=== PATIENT | male | born 1975 | race Caucasian/White ===

== ENCOUNTER 2017-01-19 18:28 | Emergency (ER) | payer MEDICAID, OTHER ==
[~2017-01-19] VITALS: Ht 193 cm; Wt 107.4 kg
[~2017-01-19 18:28] MED LIST: ACYC-114 PO; TADA2.5T PO
[2017-01-19] MEDS ORDERED: KETOROLAC 30 MG/1 ML IM ONE (20:30)
[2017-01-19] MEDS ORDERED: DIAZEPAM 5 MG TABLET PO ONE (20:30)
[2017-01-19] MEDS ORDERED: DIAZEPAM 5 MG TABLET ONE (21:25)
[2017-01-19] MEDS ORDERED: KETOROLAC 30 MG/1 ML ONE (21:25)
[2017-01-19 21:58] VITALS: BP 162/97
== END 2017-01-19 22:00 | disposition home or self-care (01) ==
LOC: ED 21:50
DX: S16.1XXA Strain of muscle, fascia and tendon at neck level, initial encounter (principal); S39.012A Strain of muscle, fascia and tendon of lower back, initial encounter; G89.11 Acute pain due to trauma; G43.909 Migraine, unspecified, not intractable, without status migrainosus; V43.52XA Car driver injured in collision with other type car in traffic accident, initial encounter; Y93.89 Activity, other specified; Y92.89 Other specified places as the place of occurrence of the external cause; Y99.8 Other external cause status
CPT/HCPCS: 72110; 72125; 73030; 96372; 99284; J1885

== ENCOUNTER 2017-01-20 12:34 | Emergency (ER) | payer MEDICAID, OTHER ==
[~2017-01-20] VITALS: Ht 193 cm; Wt 107.0 kg
[2017-01-20 14:02] LABS: HEMATOCRIT 46.1 % (39.2-51.8); HEMOGLOBIN 15.7 g/dL (13.7-18.0); WHITE BLOOD COUNT 8.2 x10^3/uL (3.4-10)
[2017-01-20 14:44] VITALS: BP 152/92
== END 2017-01-20 15:39 | disposition home or self-care (01) ==
LOC: ED 15:30
DX: N20.0 Calculus of kidney (principal)
CPT/HCPCS: 36415; 74176; 81001; 85025; 87086; 87147; 99285

== ENCOUNTER 2019-04-11 10:48 | Emergency (ER) | payer MEDICAID, OTHER ==
[~2019-04-11] VITALS: Ht 193 cm; Wt 89.4 kg
[2019-04-11 10:50] VITALS: BP 126/87
--- NOTE | 2019-04-11 11:07 | NUR ---
Dr. Sahu at bedside to evaluate pt.
--- NOTE | 2019-04-11 11:21 | NUR ---
Pt to xray via wheelchair.
[2019-04-11] MEDS ORDERED: DIPH,PERTUSS(ACELL),TET VAC/PF 0.5 ML IM-VACC ONE ×2 (11:30→11:34)
[2019-04-11] MEDS ORDERED: KETOROLAC 30 MG/1 ML IM ONE (11:30)
[2019-04-11] MEDS ORDERED: KETOROLAC 60 MG/2 ML ONE (11:34)
[2019-04-11] MEDS ORDERED: OXYcodone/APAP 10/325MG TABLET ONE (12:11)
[2019-04-11] MEDS ORDERED: NEOSPORIN OINT. PKT 1 PACKET ONE ×2 (12:18→12:26)
[2019-04-11] MEDS ORDERED: OXYcodone/APAP 10/325MG TABLET PO ONE (12:30)
== END 2019-04-11 13:12 | disposition home or self-care (01) ==
LOC: ED 11:44
DX: S23.41XA Sprain of ribs, initial encounter (principal); S20.212A Contusion of left front wall of thorax, initial encounter; V29.9XXA Motorcycle rider (driver) (passenger) injured in unspecified traffic accident, initial encounter; Y93.89 Activity, other specified; Y92.89 Other specified places as the place of occurrence of the external cause; Y99.8 Other external cause status
CPT/HCPCS: 71101; 90471; 90715; 96372; 99283; J1885